=== PATIENT | female | born 1985 | race African-American/Black ===

== ENCOUNTER 2019-09-23 15:57 | Emergency (ER) | payer SELFPAY ==
--- NOTE | ~2019-09-23 | XR_ITS ---
EXAMINATION: XR lumbar spine 2-3V EXAM DATE: 09/23/2019 16:47 INDICATION: Low back pain. TECHNIQUE: Lumber spine frontal, lateral, lateral L5-S1 projections for interpretation. There is no prior study for comparison. FINDINGS: No spondylolysis. The vertebral bodies are aligned in the AP dimension. Vertebral body and disc heights are well-maintained. Sacrum, sacroiliac joints, sacral arcuate lines are intact. Parasp inal soft tissue is unremarkable. There is mild lumbar facet arthropathy. IMPRESSION: Mild lumbar facet arthropathy. Reviewed, dictated and finalized at [facility]. [employer]ICE [employer]ENT
[2019-09-23 16:04] VITALS: BP 128/64; PULSE 72; RESP 20; TEMP 36.5; O2SAT 100
--- NOTE | 2019-09-23 16:10 | ED.BACK ---
HPI - Back Pain/Injury General Chief Complaint: Back Pain/Injury Stated Complaint: back pain Time Seen by Provider: 09/23/19 16:08 Source: patient Mode of arrival: ambulatory Limitations: no limitations History of Present Illness HPI Narrative: Pt is a 34 y/o female who presents to the ED with c/o lower back pain that started 2 days ago. 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 She denies numbness/tingling to BLE or any urinary issues. Her pain is aggravated when sitting up. MD elicited complaint: back pain Onset (ago): day(s) (2) Timing: constant Location: lumbar spine Exacerbating factors: sitting upright Associated symptoms: denies other symptoms Related Data Home Medications Medication Instructions Recorded Confirmed albuterol sulfate INHALATION 09/23/19 Allergies Allergy/AdvReac Type Severity Reaction Status Date / Time naproxen [From Aleve] Allergy Hives Verified 09/23/19 16:07 contrast dye Allergy Anaphylaxis Uncoded 09/23/19 16:07 Review of Systems Review of Systems: All systems reviewed & are unremarkable except as noted in HPI and below Genitourinary: Genitourinary: Denies other (urinary issues) Musculoskeletal: Musculoskeletal: Reports back pain Neurologic: Denies numbness and Denies tingling PMFSH Past Medical History Medical History (Updated 09/23/19 @ 17:29 by Jose De Jesus Winston MD) No significant past medical history Surgical History Surgical History (Updated 09/23/19 @ 16:22 by Leilani Osei) No significant past surgical history Social History Social History (Updated 09/23/19 @ 16:22 by Leilani Osei) Occupation/Education: occupation 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 HEAD: Normocephalic, atraumatic. EYES: PERRLA and EOMI. ENT: Nares clear, Mucous membranes moist. NECK: Supple. CHEST: Clear to auscultation. No respiratory distress. HEART: Regular rate and rhythm. No murmur heard. Normal peripheral pulses EXTREMITIES: Normal range of motion. No edema. Lumbar spine pain in the lower lumbar area , no vertebral point tenderness , SLR neg SKIN: Warm, dry, no rash. NEURO: No focal deficits. Alert and oriented x3. PSYCH: Normal mood and affect. Course Course Emergency Course: Patient states her pain is much improved, discussed x-ray findings with the patient and family. Advised her to take medication as prescribed. Follow-up with her primary doctor. Vital Signs Vital signs: Vital Signs Temperature 36.5 C 09/23/19 16:04 Pulse Rate 72 09/23/19 16:04 Respiratory Rate 20 09/23/19 16:04 Blood Pressure 128/64 09/23/19 16:04 Pulse Oximetry 100 09/23/19 16:04 Temperature 36.5 C 09/23/19 16:04 Pulse Rate 72 09/23/19 16:04 Respiratory Rate 20 09/23/19 16:04 Blood Pressure 128/64 09/23/19 16:04 Pulse Oximetry 100 09/23/19 16:04 MDM - Back Pain/Injury Lab Data Labs: UCG Bedside Result Negative Reference Range: Negative Imaging Data Radiologist's impression: ITS Impressions Lumbar Spine X-Ray 09/23/19 16:51 IMPRESSION: Mild lumbar facet arthropathy. Discharge Plan Discharge Clinical Impression: Strain of lumbar region Patient Disposition: Home, Self-Care Condition: Stable Instructions: Antibiotic Form, Acute Low Back Pain (ED) Prescriptions: New prednisone 20 mg tablet 20 mg PO BID Qty: 14 RF: 0 cyclobenzaprine 5 mg tablet 5 mg PO TID PRN (Reason: muscle spasm) Qty: 20 RF: 0 tramadol 50 mg tablet 50 mg PO Q6H PRN (Reason: pain) Qty: 14 RF: 0 No Action albuterol sulfate 90 mcg/actuation Hfa Aerosol Inhaler INHALATION RF: 0 Follow-up/Referrals: PHYSICIAN,DENTAL TECH [Primary Care Provider] - iDno Jackson MD [Physician] - [facility]
[2019-09-23] MEDS: CYCLOBENZAPRINE HCL 10 MG TABLET PO (17:04)
[2019-09-23] MEDS: MORPHINE SULFATE 4 MG/ML INJ IV PUSH (17:05)
== END 2019-09-23 17:43 | disposition home or self-care (01) ==
PROVIDERS: Emergency Provider Family Medicine
DX: S39.012A Strain of muscle, fascia and tendon of lower back, initial encounter (principal); X50.9XXA Other and unspecified overexertion or strenuous movements or postures, initial encounter
CPT/HCPCS: 72100; 81025; 96374; 96375; 99284; A9270; J1100; J2270

== ENCOUNTER 2020-06-07 14:07 | Emergency (ER) | payer MEDICAID, SELFPAY ==
[2020-06-07] VITALS (10 sets, daily range): BP systolic 113–141; BP diastolic 72–98; PULSE 74–87; RESP 16; TEMP 36.5; O2SAT 94–98
--- NOTE | ~2020-06-07 | CT_ITS ---
EXAMINATION: CT abdomen pelvis wo con DATE: 06/07/2020 16:08 INDICATION: Right flank pain, increased urination. TECHNIQUE: Computed tomography (CT) of the abdomen and pelvis was performed without intravenous contr ast. Automated exposure control and iterative reconstruction technique were employed. Exam dose: 148 7.34 mGy-cm total exam DLP. COMPARISON: None. FINDINGS: Approximately 2.5 mm right middle lobe nodule (series 4 image 14). No pulmonary infiltrate or consolidation the included lower lung zones. Normal heart size. No pericardial or pleural effusion. The liver, gallbladder, spleen, pancreas, bile and pancreatic ducts, and adrenal glands and kidneys a ppear normal. No urinary tract calculus or hydroureteronephrosis. Normal appendix. No bowel obstruction, bowel wall thickening, pneumatosis or intraperitoneal free air . The uterus and adnexal areas are unremarkable. Normal caliber of the abdominal aorta. No intraperitoneal or retroperitoneal or pelvic mass lesion or adenopathy or ascites. Small fat-containing umbilical hernia. Included skeletal structures are unremarkable. IMPRESSION: No significant abnormality of the abdomen or pelvis Nonspecific 2.5 mm middle lobe nodule, most likely benign Reviewed, dictated and finalized at [facility]. Reviewed, dictated and finalized at [facility]. EKEEPING STAFF
[2020-06-07 14:59] LABS: Basophils Absolute Auto 0.1 K/mm3 (0.0-0.1); Basophils Percent Auto 0.9 % (0.2-1.2); Eosinophils Absolute Auto 0.3 K/mm3 (0-0.3); Eosinophils Percent Auto 3.5 % (0-4.4); Hematocrit 37.3 % (37.0-47.0); Hemoglobin 11.9 g/dL (12.0-15.0); Immature Granulocyte Absolute 0.02 K/mm3 (0.00-0.031); Immature Granulocyte Percent A 0.2 % (0-0.5); Lymphocytes Percent Auto 30.5 % (18.3-44.2); Mean Corpuscular HGB Conc 31.9 g/dl (32-36); Mean Corpuscular Hemoglobin 24.4 pg (26-34); Mean Corpuscular Volume 76.6 fl (80-100); Mean Platelet Volume 10.2 fl (7.4-10.4); Monocytes Absolute Auto 0.3 K/mm3 (0.1-0.6); Monocytes Percent Auto 3.4 % (2.6-8.5); Neutrophils Absolute Auto 5.7 K/mm3 (1.3-6.7); Neutrophils Percent Auto 61.5 % (45.5-73.1); Platelet Count Result 360 k/mm3 (150-375); Red Blood Count 4.87 M/mm3 (4.2-5.4); Red Cell Distribution Width 15.2 % (11.5-14.5); White Blood Count 9.2 K/mm3 (4.5-10.0)
[2020-06-07 15:05] LABS: Alanine Aminotransferase 21 U/L (4-35); Albumin Level 4.3 g/dL (3.5-5.1); Alkaline Phosphatase 89 U/L (38-126); Anion Gap 8 mmol/L (8-16); Aspartate Amino Transferase 23 U/L (14-36); Bilirubin,Total 0.3 mg/dL (0.2-1.3); Blood Urea Nitrogen 10 mg/dL (7-17); Calcium 9.4 mg/dL (8.4-10.2); Carbon Dioxide 27 mmol/L (22-30); Chloride 106 mmol/L (98-107); Estimated CRCL calculation 99 ml/min; Estimated Glomerular Filt Rate > 60; Glucose 149 mg/dL (65-105); Lipase 46 U/L (23-300); Sodium 141 mmol/L (137-145)
[2020-06-07 15:10] LABS: Potassium 3.8 mmol/L (3.4-5.0)
[2020-06-07 16:00] LABS: Add Urine Microscopic? YES; Appearance Urine Cloudy (Clear); Bacteria Urine 2+ /hpf; Bilirubin Urine Negative (Negative); Color Urine Yellow (Yellow); Glucose Urine UA Negative (Negative); Ketones Urine Negative (Negative); Leukocyte Esterase Ur Trace LEU/UL (Negative); Mucus Urine Few /lpf; Nitrate Urine Positive (Negative); Protein Urine Negative (Negative); Specific Grav Ur 1.021 (1.001-1.035); Squamous Epithelial Cell Urine Moderate /hpf (Few); Urobilinogen Urine Negative mg/dL (<2.0); WBC Urine >75 /hpf
[2020-06-07 16:08] LABS: Blood Urine Negative (Negative)
--- NOTE | 2020-06-07 16:09 | ED.ABDPAIN ---
HPI - Abdominal Pain General Chief Complaint: Abdominal Pain Stated Complaint: right side pain Time Seen by Provider: 06/07/20 15:48 Source: patient Mode of arrival: ambulatory Limitations: no limitations History of Present Illness HPI narrative: Patient is 34-year-old female with 3 days duration of right flank pain is a moderate sharp stabbing pain denies similar occurrence in the past took [id number] medications with minimal improvement presents to emergency department in no distress notes he has had some emesis with the pain Related Data Home Medications Medication Instructions Recorded Confirmed albuterol sulfate INHALATION 09/23/19 medroxyprogesterone mg 06/07/20 vit no.[id number] tablet 06/07/20 [ Vitamin] Allergies Allergy/AdvReac Type Severity Reaction Status Date / Time naproxen [From Aleve] Allergy Hives Verified 09/23/19 16:07 shellfish derived Allergy Anaphylaxis Verified 06/07/20 14:38 contrast dye Allergy Anaphylaxis Uncoded 09/23/19 16:07 Review of Systems Review of Systems: All systems reviewed & are unremarkable except as noted in HPI and below PMFSH Past Medical History Medical History No significant past medical history Surgical History Surgical History No significant past surgical history Social History Social History 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 HEAD: Normocephalic, atraumatic. EYES: PERRLA and EOMI. ENT: Nares clear, no rhinorrhea or epistaxis. Mucous membranes moist. CHEST: Clear to auscultation. No respiratory distress. No wheezes rales or rhonchi HEART: Regular rate and rhythm. No murmur heard. Normal peripheral pulses. ABDOMEN: Soft, right-sided abdominal tenderness no rebound or guarding, nondistended EXTREMITIES: Normal range of motion. No edema. SKIN: Warm, dry, no rash. NEURO: No focal deficits. Alert and oriented x3. PSYCH: Normal mood and affect. Course Course Emergency Course: Patient in the room at this time aware of case findings treatment plan diagnosis hydrated given antibiotics and other medications with improvement of her symptoms will be discharged home will follow with gynecology provided with reasons to return Vital Signs Vital signs: Vital Signs Temperature 97.7 F 06/07/20 14:29 Pulse Rate 84 06/07/20 14:29 Respiratory Rate 16 06/07/20 14:29 Blood Pressure 113/76 06/07/20 14:29 Pulse Oximetry 97 06/07/20 14:29 Temperature 97.7 F 06/07/20 14:29 Pulse Rate 80 06/07/20 16:44 Respiratory Rate 16 06/07/20 16:44 Blood Pressure 122/72 06/07/20 16:44 Pulse Oximetry 95 06/07/20 16:44 MDM - Abdominal Pain MDM Narrative Medical decision making narrative: Patient afebrile nontoxic-appearing no distress resting comfortably in the room felt appropriate for outpatient reevaluation will follow with her specialist Lab Data Result diagrams: 06/07/20 14:41 06/07/20 14:41 Labs: Lab Results 06/07/20 06/07/20 06/07/20 Range/Units 14:41 14:41 15:36 WBC 9.2 (4.5-10.0) K/mm3 RBC 4.87 (4.2-5.4) M/mm3 Hgb 11.9 L (12.0-15.0) g/dL Hct 37.3 (37.0-47.0) % MCV 76.6 L (80-100) fl MCH 24.4 L (26-34) pg MCHC 31.9 L (32-36) g/dl RDW 15.2 H (11.5-14.5) % Plt Count 360 (150-375) k/mm3 MPV 10.2 (7.4-10.4) fl Immature Gran % (Auto) 0.2 (0-0.5) % Neut % (Auto) 61.5 (45.5-73.1) % Lymph % (Auto) 30.5 (18.3-44.2) % Mcc[place] % (Auto) 3.4 (2.6-8.5) % Eos % (Auto) 3.5 (0-4.4) % Baso % (Auto) 0.9 (0.2-1.2) % Lymph # (Auto) 2.80 (0.9-3.2) K/mm3 [place] # (Auto) 0.3
[2020-06-07] MEDS: ONDANSETRON INJ 4 MG/2 ML VIAL IV PUSH (16:20)
[2020-06-07] MEDS: SODIUM CHLORIDE 0.9% IV 1,000 ML 999 ML IV CONT (16:20)
[2020-06-07] MEDS: FAMOTIDINE 20 MG/2 ML VIAL IV PUSH (16:20)
== END 2020-06-07 17:04 | disposition home or self-care (01) ==
PROVIDERS: Emergency Provider Emergency Medicine
DX: N39.0 Urinary tract infection, site not specified (principal); R91.1 Solitary pulmonary nodule
CPT/HCPCS: 36415; 74176; 80053; 81001; 81025; 83690; 85025; 87077; 87086; 87088; 87186; 96365; 96375; 99284; J0131; J0696; J2405; J7030

== ENCOUNTER 2020-08-24 15:12 | Emergency (ER) | payer BC, OTHER, SELFPAY ==
[2020-08-24 15:51] VITALS: BP 115/90; PULSE 90; RESP 16; TEMP 36.4; O2SAT 97
--- NOTE | 2020-08-24 16:21 | PC.NURSE ---
patient brought back to ED room 17 with c/o abscess like area in right groin. patient has been in our waiting area due to no beds available. ambulated slowly with slight limp due to pain. gown given. patient to restroom. urine specimen in room if needed.
--- NOTE | 2020-08-24 17:01 | ED.SKABFB ---
HPI - Skin/Abscess/Foreign Bdy General Chief complaint: Skin/Abscess/Foreign Body Stated complaint: cyst vaginal area Time Seen by Provider: 08/24/20 16:36 Source: patient Mode of arrival: ambulatory Limitations: no limitations History of Present Illness HPI narrative: This is a 35-year-old female that presents the emergency department for swelling in her groin x1 week. Reports area of swelling and pain. Reports urinary frequency. Denies fever, dysuria, hematuria, erythema, or drainage. Related Data Home Medications Medication Instructions Recorded Confirmed albuterol sulfate INHALATION 09/23/19 medroxyprogesterone mg 06/07/20 vit no.[id number] tablet 06/07/20 [ Vitamin] Allergies Allergy/AdvReac Type Severity Reaction Status Date / Time naproxen [From Aleve] Allergy Hives Verified 08/24/20 15:54 shellfish derived Allergy Anaphylaxis Verified 08/24/20 15:54 contrast dye Allergy Anaphylaxis Uncoded 09/23/19 16:07 Review of Systems Review of Systems: Narrative: CONSTITUTIONAL: Denies fever GENITOURINARY: Denies dysuria or hematuria. 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 HEAD: Normocephalic, atraumatic. EYES: EOMI. EXTREMITIES: Normal range of motion. Small amount of swelling at the right anterior, upper thigh. No overlying redness or central fluctuance to suggest abscess. Patient is tender in this area. No abnormal inguinal lymphadenopathy SKIN: Warm, dry, no rash. NEURO: No focal deficits. Alert and oriented x3. PSYCH: Normal mood and affect Course Vital Signs Vital signs: Vital Signs Temperature 97.6 F 08/24/20 15:51 Pulse Rate 90 08/24/20 15:51 Respiratory Rate 16 08/24/20 15:51 Blood Pressure 115/90 08/24/20 15:51 Pulse Oximetry 97 08/24/20 15:51 Temperature 97.6 F 08/24/20 15:51 Pulse Rate 90 08/24/20 15:51 Respiratory Rate 16 08/24/20 15:51 Blood Pressure 115/90 08/24/20 15:51 Pulse Oximetry 97 08/24/20 15:51 MDM - Skin/Abscess/Foreign Bdy MDM Narrative Medical decision making narrative: Patient presents to the emergency department for area of tenderness to the right anterior thigh present over the last week. No injury or trauma. She is afebrile and nontoxic appearing. The area is tender to palpation, without any erythema or fluctuance to suggest infection. No abnormal inguinal adenopathy. Patient was also reporting urinary frequency. UA with evidence of possible infection. Bedside test is negative. She will be started on oral antibiotics. She was given warnings to return to the ER Lab Data Attestation: I reviewed the patient's lab results. Labs: Lab Results 08/24/20 Range/Units 17:22 Urine Color Yellow (Yellow) Urine Appearance Cloudy H (Clear) Urine pH 6.0 (5.0-9.0) Ur Specific [place] 1.018 (1.001-1.035) Urine Protein 1+ H (Negative) mg/dL Urine Glucose (UA) Negative (Negative) mg/dL Urine Ketones Negative (Negative) mg/dL Ur Blood (Man) Negative (Negative) Urine Nitrate Negative (Negative) Urine Bilirubin Negative (Negative) Urine Urobilinogen Negative (<2.0) mg/dL Leukocyte Esterase Rfl 2+ H (Negative) CHARLIE/UL Urine RBC 0-2 (0-2) /hpf Urine WBC 21-30 H /hpf Ur Squamous Epith Cells Many H (Few) /hpf Urine Bacteria Trace /hpf Urine Mucus Rare /l
[2020-08-24 17:33] LABS: Add Urine Microscopic? YES; Appearance Urine Cloudy (Clear); Bacteria Urine Trace /hpf; Bilirubin Urine Negative (Negative); Color Urine Yellow (Yellow); Glucose Urine UA Negative (Negative); Ketones Urine Negative (Negative); Leukocyte Esterase Ur 2+ LEU/UL (Negative); Mucus Urine Rare /lpf; Nitrate Urine Negative (Negative); Protein Urine 1+ mg/dL (Negative); RBC Urine 0-2 /hpf (0-2); Specific Grav Ur 1.018 (1.001-1.035); Squamous Epithelial Cell Urine Many /hpf (Few); Urobilinogen Urine Negative mg/dL (<2.0); WBC Urine 21-30 /hpf
[2020-08-24 17:34] LABS: Blood Urine Negative (Negative)
== END 2020-08-24 18:02 | disposition home or self-care (01) ==
PROVIDERS: Physician Assistant; Emergency Provider Emergency Medicine
DX: L03.115 Cellulitis of right lower limb (principal); N30.00 Acute cystitis without hematuria
CPT/HCPCS: 81001; 81025; 87077; 87086; 87088; 87186; 99283